=== PATIENT | female | born 2000 | race Caucasian/White ===

== ENCOUNTER 2018-01-22 21:44 | Emergency (ER) | payer OTHER ==
[~2018-01-22] VITALS: Ht 175.3 cm; Wt 60.5 kg
[2018-01-22 21:48] VITALS: Ht 175.3 cm; Wt 60.5 kg
[2018-01-22 22:58] LABS: BASO % 0.4 %; BASO ABS # 0.03 K/uL (0-0.2); EOS % 2.3 %; EOS ABS # 0.16 K/uL (0-0.5); HEMOGLOBIN 13.7 g/dL (12.0-16.0); IG# 0.02 K/uL (0.00-0.02); LYMPH % 28.6 %; LYMPH ABS # 1.97 K/uL (1.2-3.4); MEAN CELL VOLUME 91.5 fL (80-100); MEAN CORPUSCULAR HEMOGLOBIN 30.6 pg (25-34); MEAN CORPUSCULAR HGB CONC 33.4 g/dl (32-36); MEAN PLATELET VOLUME 9.7 fL (7.4-10.4); MONO % 9.3 %; MONO ABS # 0.64 K/uL (0.11-0.59); NEUT % 59.1 %; NEUT ABS # 4.08 K/uL (1.4-6.5); PLATELET COUNT 184 K/uL (130-400); RED CELL DISTRIBUTION WIDTH CV 13.4 % (11.5-14.5); RED CELL DISTRIBUTION WIDTH SD 44.3 fL (36.4-46.3)
[2018-01-22 23:14] LABS: ALBUMIN 3.6 gm/dl (3.4-5.0); CALCIUM 8.9 mg/dl (8.5-10.1); CREATININE 0.78 mg/dl (0.60-1.20); POTASSIUM 3.3 mmol/L (3.5-5.1)
[2018-01-22 23:17] LABS: TOTAL PROTEIN 6.5 gm/dl (6.4-8.2)
[2018-01-23] MEDS ORDERED: OPTIRAY 320 IV PRN (00:15)
[2018-01-23] MEDS ORDERED: DXY100 PO (00:56)
--- NOTE | 2018-01-23 00:57 | EMERGENCY ROOM VISIT NOTE ---
History Report prepared by Anna: Daniel Jacobson Under the Supervision of: Dr. Roberto Clarke M.D. First contact with patient: 21:54 Chief Complaint: INFECTION Stated Complaint: INFECTED R FOOT History of Present Illness The patient is a 18 year old female who presents to the Emergency Room with complaints of persistent right foot infection after cutting her right foot 7 days ago. She states that she was in [place] for spring last week, and while in the ocean, she cut her right foot on a rock. The patient says that she got 2 stitches at the [facility] by a doctor, that were taken out yesterday. The patient says that there was some drainage that was somewhat clear. She notes that she was put on Levofloxacin and a medication for the swelling that is equivalent to Advil. The patient says that the swelling started right after the incident, and redness started 2 days ago and has gradually been worsening. The patient states that her right foot is tingling, but is not painful. She rates the pain as a 3 out of 10 [address] she walks. She says that the flight home increased the swelling, especially up into her leg. She adds that on the car ride from [place] to [facility], she noticed some swelling starting on her left foot. She states that she went to the hospital in [place] first after she landed, and had an x-ray and blood work, and it was inconclusive what the problem was. The x-ray revealed no abnormalities and her CBC and chemistry panel looked good. The patient states that she has been trying to keep her right foot elevated at most times. She notes no chronic medical conditions and no pertinent family history. Pt denies LOC, headache, visual changes, neck pain , chest pain, breathing difficulties, nausea, vomiting, abdominal pain, back pain, weakness, open wounds, or other complaints. Source of History: patient Onset: 7 days ago Position: foot (right) Symptom Intensity: redness and swelling Quality: other (infection) Timing: other (persistent) Note: Tingling right foot. Left foot swelling starting today. No other associated symptoms noted. Review of Systems See HPI for pertinent positives and negatives. A total of ten systems were reviewed and were otherwise negative. Past Medical & Surgical Medical Problems: (1) No chronic diseases present Family History No pertinent family history Social History Smoking Status: Never Smoker Marital Status: single Housing Status: lives with roommate Occupation Status: [employer] student Current/Historical Medications Scheduled Doxycycline Hyclate (Doxycycline Hyclate), 100 MG PO BID [redaflam], 1 TAB PO DAILY Allergies Coded Allergies: Amoxicillin (Verified Allergy, Intermediate, rash, 01/22/18) Clavulanic Acid (Verified Allergy, Intermediate, rash, 01/22/18) Physical Exam Vital Signs Date Time Temp Pulse Resp B/P (MAP) Pulse Ox O2 Delivery O2 Flow Rate FiO2 01/23/18 01:19 36.7 58 20 107/66 100 01/23/18 00:28 36.7 58 20 107/66 100 Room Air 01/22/18 23:17 49 20 124/65 100 Room Air 01/22/18 21:48 36.7 119 20 130/89 97 Room Air Physical Exam GENERAL: Awake, alert, well-appearing, in no distress HENT: Normocephalic, atraumatic. Oropharynx unremarkable. EYES: Normal conjunctiva. Sclera non-icteric. NECK: Supple. No nuchal rigidity. FROM. No masses. RESPIRATORY: Clear to auscultation. No wheezes. CARDIAC: Borderline tachycardic rate. Normal rhythm. No murmurs. No rubs. Extremities warm and well perfused. Pulses equal. No JVD. GI: Soft, non-distended. No tenderness to palpation. No rebound or guarding. No masses. RECTAL: Deferred. MUSCULOSKELETAL: Chest examination reveals no tenderness. The back is symmetrical on inspection without obvious abnormality. There is no CVA tenderness to palpation. No joint edema. LOWER EXTREMITIES: 2+ pedal edema right side, 1+ pretibial edema. Incision is clean, dry, and intact on lateral foot. Erythema dorsal aspect of right foot, no significant tenderness. Right calf is slightly larger than left. NEURO: Normal sensorium. No sensory or motor deficits noted. SKIN: No rash or jaundice noted. Medical Decision & Procedures ER Provider Diagnostic Interpretation: US: Radiology results as stated below per my review and radiologist interpretation US VENOUS RIGHT LOWER EXTREMITY: No DVT. Radiologist: Sg West MD CT scan of the right lower extremity reveals soft tissue stranding in the distal ankle and foot which may represent an edema versus cellulitis. No fluid collection. No acute fracture. No sclerotic or destructive change in the bones to suggest an infectious process. CT scan report Per stat rad. Laboratory Results 3/10/18 22:35 Red Blood Count 4.48, Mean Corpuscular Volume 91.5, Mean Corpuscular Hemoglobin 30.6, Mean Corpuscular Hemoglobin Concent 33.4, Mean Platelet Volume 9.7, Neutrophils (%) (Auto) 59.1, Lymphocytes (%) (Auto) 28.6, Monocytes (%) (Auto) 9.3, Eosinophils (%) (Auto) 2.3, Basophils (%) (Auto) 0.4, Neutrophils # (Auto) 4.08, Lymphocytes # (Auto) 1.97, Monocytes # (Auto) 0.64, Eosinophils # (Auto) 0.16, Basophils # (Auto) 0.03 01/22/18 22:35 Test 01/22/18 22:35 White Blood Count 6.90 K/uL (4.8-10.8) Red Blood Count 4.48 M/uL (4.2-5.4) Hemoglobin 13.7 g/dL (12.0-16.0) Hematocrit 41.0 % (37-47) Mean Corpuscular Volume 91.5 fL (80-100) Mean Corpuscular Hemoglobin 30.6 pg (25-34) Mean Corpuscular Hemoglobin Concent 33.4 g/dl (32-36) Platelet Count 184 K/uL (130-400) Mean Platelet Volume 9.7 fL (7.4-10.4) Neutrophils (%) (Auto) 59.1 % Lymphocytes (%) (Auto) 28.6 % Monocytes (%) (Auto) 9.3 % Eosinophils (%) (Auto) 2.3 % Basophils (%) (Auto) 0.4 % Neutrophils # (Auto) 4.08 K/uL (1.4-6.5) Lymphocytes # (Auto) 1.97 K/uL (1.2-3.4) Monocytes # (Auto) 0.64 K/uL (0.11-0.59) Eosinophils # (Auto) 0.16 K/uL (0-0.5) Basophils # (Auto) 0.03 K/uL (0-0.2) RDW Standard Deviation 44.3 fL (36.4-46.3) RDW Coefficient of Variation 13.4 % (11.5-14.5) Immature Granulocyte % (Auto) 0.3 % Immature Granulocyte # (Auto) 0.02 K/uL (0.00-0.02) Erythrocyte Sedimentation Rate 7 mm/hr (0-21) Anion Gap 5.0 mmol/L (3-11) Est Creatinine Clear Calc Drug Dose 109.9 ml/min Estimated GFR () 126.8 Estimated GFR (Non- 109.4 BUN/Creatinine Ratio 12.8 (10-20) Calcium Level 8.9 mg/dl (8.5-10.1) Total Bilirubin 0.3 mg/dl (0.2-1) Direct Bilirubin 0.1 mg/dl (0-0.2) Aspartate Amino Transf (AST/SGOT) 37 U/L (15-37) Alanine Aminotransferase (ALT/SGPT) 32 U/L (12-78) Alkaline Phosphatase 52 U/L (45-117) C-Reactive Protein 0.37 mg/dl (0-0.29) Total Protein 6.5 gm/dl (6.4-8.2) Albumin 3.6 gm/dl (3.4-5.0) Procalcitonin < 0.05 ng/ml (0-0.5) Laboratory results reviewed by me Medications Administered Medications (Trade) Dose Ordered Sig/Derrick Route Start Time Stop Time Status Last Admin Dose Admin Doxycycline Hyclate (Vibramycin Cap) 200 mg ONE ONCE PO 01/23/18 01:00 01/23/18 01:01 DC 01/23/18 00:58 200 MG ED Course 2157: The patient was evaluated in room B7. A complete history and physical exam was performed. 2358: I reevaluated and updated the patient. We will do a CT scan. 1253: The patient was reassessed. Discussed results. She is feeling well. She is comfortable with conservative management and close outpatient follow-up. Medical Decision Triage Nursing notes reviewed. The patient's presentation and history were concerning for swelling and pain in the leg after a wound in the saltwater. Etiologies such as cellulitis, retained foreign body, vibrio infection, Mycobacterium infection, DVT, joint effusion, infection, trauma, muscular, lymphedema, idiopathic, CHF, as well as others were entertained. The patient was evaluated. She Was mildly tachycardic initially but this resolved. Blood work was obtained. The patient had an ultrasound ordered. Her CBC was unremarkable. Chemistry panel and LFTs negative. The patient had a minor elevation of her CRP but normal ESR. Ultrasound imaging did not reveal any evidence of DVT. CT imaging was performed to rule out any deep space infection or necrotizing fasciitis given the saltwater wound exposure. This was negative except for edema/cellulitis. The patient is finishing her levofloxacin prescription. Based upon the exposure I discussed additional coverage with doxycycline. She was given the initial doses here. Prescription was sent to her pharmacy. She will follow-up in 2 days with [facility]. The patient was also given supportive stockings for the edema. I gave my usual and customary discussion regarding this issue. By the evaluation outlined above other emergent etiologies such as those listed in the differential, as well as others, were deemed relatively unlikely. The patient was educated about the findings as listed above. All questions were answered and the patient was pleased with the treatment. Return instructions were outlined and the patient was discharged in stable condition. The patient was referred to [facility] for follow-up for a recheck of the current condition. Medication Reconcilliation Current Medication List: was personally reviewed by me Blood Pressure Screening Patient's blood pressure: Elevated blood pressure Blood pressure disposition: Elevated BP felt to be situational Impression Primary Impression: Cellulitis Additional Impression: Edema Scribe Attestation The scribe's documentation has been prepared under my direction and personally reviewed by me in its entirety. I confirm that the note above accurately reflects all work, treatment, procedures, and medical decision making performed by me. Departure Information Dispostion Home / Self-Care Prescriptions Doxycycline Hyclate (Doxycycline Hyclate) 100 Mg Cap 100 MG PO BID for 9 Days, #18 CAP Prov: Roberto Clarke MD 01/23/18 Patient Instructions My [facility] Additional Instructions Doxycycline 100mg: Take one pill twice daily for 10 days for your foot. Take with food, but avoid dairy. Avoid prolonged sun exposure since this medication makes you temporarily more susceptible to sunburns. All antibiotics can cause diarrhea. If this occurs and you feel worse or it does not resolve in 1-2 days follow up with your doctor or return to the Emergency Department as this could be signs of serious underlying problems. Any medication can cause an allergic reaction, stop the pills immediately and return to the ER for rash, hives, breathing difficulties, or swelling. Ibuprofen(Motrin, Advil) may be used for fever or pain. Use 600mg every six hours as needed. Take with food. Avoid using more than 2400mg in a 24 hour period. Do not use 2400mg per day for more than three consecutive days without physician direction. Prolonged inappropriate use can lead to stomach upset or ulcers. (AND/OR) Acetaminophen(Tylenol) may be used for fever or pain. Use 1000mg every six hours as needed. Avoid using more than 4000mg in a 24 hour period. Warm compresses to the affected area 4 times daily for 15-20 minutes. Use the support stockings daily and elevate your legs. Rest and drink plenty of fluids. Return to the ER for severe pain, persistent fevers, spreading redness, or any worsening of your condition. Follow up with Wednesday for a recheck of the current condition. Problem Qualifiers
[2018-01-23] MEDS ORDERED: DOXYCYCLINE HYCLATE 100 MG CAP PO ONE (01:00)
[2018-01-23] MEDS ORDERED: [UNRECOGNIZED DRUG - OTHER] PO (01:17)
[2018-01-23 01:19] VITALS: BP 107/66; PULSE 58; TEMP 36.7; O2SAT 100
--- NOTE | 2018-01-23 06:31 | DIAGNOSTIC IMAGING REPORT ---
ULTRASOUND R VENOUS DOPP LOWER EXT UNILAT CLINICAL HISTORY: right leg swelling COMPARISON STUDY: No previous studies for comparison. FINDINGS: Real-time and color flow Doppler imaging were performed. Flow was seen within the femoral, popliteal and calf veins with no intraluminal thrombus demonstrated. The saphenous vein is patent. IMPRESSION: No evidence of right lower extremity DVT Electronically signed by: João Lock M.D. 01/23/2018 6:29 AM Dictated Date/Time: 01/23/2018 6:29 AM
--- NOTE | 2018-01-23 06:54 | DIAGNOSTIC IMAGING REPORT ---
CT RIGHT ANKLE WITH CONTRAST CT DOSE: 335.80 mGy.cm CLINICAL HISTORY: right foot infection, eval above ankle distally, TECHNIQUE: The patient was scanned in a dynamic helical fashion during intravenous administration of 93 cc of Optiray 320. Sagittal and coronal reformatted imaging was performed. A dose lowering technique was utilized adhering to the principles of ALARA. COMPARISON STUDY: None. FINDINGS: No fractures are visualized. There are no bony destructive lesions to indicate osteomyelitis. There is lateral soft tissue edema. There are no fluid collections to indicate a focal abscess. No foreign bodies are visualized. IMPRESSION: 1. Lateral soft tissue edema 2. No evidence of abscess 3. No foreign bodies identified 4. No evidence of osteomyelitis Electronically signed by: João Lock M.D. 01/23/2018 6:53 AM Dictated Date/Time: 01/23/2018 6:50 AM
== END 2018-01-23 01:20 | disposition home or self-care (01) ==
LOC: C.EDB 21:45
DX: L03.115 Cellulitis of right lower limb (principal); S99.921A Unspecified injury of right foot, initial encounter; W45.8XXA Other foreign body or object entering through skin, initial encounter; Y92.832 Beach as the place of occurrence of the external cause; Z88.1 Allergy status to other antibiotic agents

== ENCOUNTER 2018-02-24 15:40 | Emergency (ER) | payer OTHER ==
[~2018-02-24] VITALS: Ht 174 cm; Wt 60.0 kg
[~2018-02-24 15:40] MED LIST: DXY100 PO; [UNRECOGNIZED DRUG - OTHER] PO
[2018-02-24 15:45] VITALS: Ht 174 cm; Wt 60.0 kg
--- NOTE | 2018-02-24 16:13 | EMERGENCY ROOM VISIT NOTE ---
History Report prepared by Anna: Daniel Jacobson Under the Supervision of: Dr. Jefry Garcia M.D. First contact with patient: 15:50 Chief Complaint: FEVER Stated Complaint: FEVER 103 History of Present Illness The patient is a 18 year old female who presents to the Emergency Room with complaints of a persistent illness that started 4 days ago. She states that on the day of onset, she had really bad right lower back pain. The next day, the pain went away but then she has been having a persistent fever since then. She notes that she has also been getting intermittent headaches. She says that she has been having muscle aches. The patient states that she had a temperature of 103 yesterday, and was seen at [facility], where she was told that if her temperature stayed that high, to come here. She notes that she has been taking Extra-Strength Tylenol alternating with Ibuprofen, which only helps temporarily. She denies any nausea, vomiting, diarrhea, cough, loss of consciousness, numbness, or rashes. The patient notes no chance of . She notes no recent sick contacts. She has no chronic medical conditions, and does not take any daily medications. Source of History: patient Onset: 4 days ago Position: other (global) Symptom Intensity: temp of 103 Quality: other (illness) Timing: other (persistent) Associated Symptoms: + fevers, + headache, + back pain, No LOC, No cough, No nausea, No vomiting, No diarrhea, No numbness, No rash Note: Lightheadedness and blurry vision upon standing. Body aches. Review of Systems See HPI for pertinent positives and negatives. A total of ten systems were reviewed and were otherwise negative. Past Medical & Surgical Medical Problems: (1) No chronic diseases present Family History No pertinent family history Social History Smoking Status: Never Smoker Marital Status: single Housing Status: lives with roommate Occupation Status: [employer] student Current/Historical Medications Scheduled PRN Acetaminophen (Tylenol Extra Strength), 1,000 MG PO DAILY PRN for Pain or Fever Ibuprofen (Ibuprofen), 400 MG PO DAILY PRN for Pain or Fever Allergies Coded Allergies: Amoxicillin (Verified Allergy, Intermediate, rash, 02/24/18) Clavulanic Acid (Verified Allergy, Intermediate, rash, 02/24/18) Physical Exam Vital Signs Date Time Temp Pulse Resp B/P (MAP) Pulse Ox O2 Delivery O2 Flow Rate FiO2 02/24/18 18:19 85 18 118/62 100 02/24/18 17:09 37.1 66 108/56 100 Room Air 02/24/18 15:45 37.4 96 18 117/69 96 Room Air Physical Exam Physical Exam GENERAL: She is oriented to person, place, and time. She appears well- developed and well-nourished. She does not appear distressed. ____ HENT: Exam performed. Head: Normocephalic and atraumatic. Right Ear: External ear normal. No mastoid tenderness. Left Ear: External ear normal. No mastoid tenderness. Mouth/Throat: The oropharynx is clear and moist. No trismus in the jaw. No dental abscesses or uvula swelling. No oropharyngeal exudate or tonsillar abscesses. ____ EYES: Funduscopic exam revealed no AV nicking or papilledema bilaterally. Conjunctivae and EOM are normal. Pupils are equal, round, and reactive to light. Right eye exhibits no discharge. Left eye exhibits no discharge. No scleral icterus. ____ NECK: Normal range of motion. Neck supple. No JVD present. No spinous process tenderness present. No carotid bruit present. No rigidity. No tracheal deviation and normal range of motion present. No Brudzinski's sign and no Kernig 's sign noted. ____ CV: Normal rate, regular rhythm, normal heart sounds and intact distal pulses. There is no peripheral edema. Palpable radial pulses bue. ____ PULM/CHEST: Effort normal and breath sounds normal. No respiratory distress. No stridor. She has no wheezes. She has no rales. Chest Wall: She exhibits no tenderness. ____ ABD: The abdomen is soft. Bowel sounds are normal. She has no distension. No mass is present. There is no tenderness. There is no rebound, no guarding, no Vasquez's sign and no tenderness at McBurney's point. Rovsig negative MUSC/SKEL: Normal range of motion. There is no peripheral edema, tenderness or deformity. LYMPH: No cervical adenopathy. ____ NEURO: She is alert and oriented to person, place, and time. She has normal strength. No cranial nerve deficit or sensory deficit. Coordination and gait normal. GCS eye subscore is 4. GCS verbal subscore is 5. GCS motor subscore is 6. Cerebellar tests wnl. ____ SKIN: Skin is warm and dry. She is not diaphoretic. ____ PSYCH: She has a normal mood and affect. She behavior is normal. Judgment and thought content normal. ____ Medical Decision & Procedures Laboratory Results Test 02/24/18 16:09 Influenza Type A Antigen Neg for Influ A (NEG) Influenza Type B Antigen Neg for Influ B (NEG) Laboratory results reviewed by me ED Course 1600: The patient was evaluated in room B12B. A complete history and physical exam was performed. 1710: Vital signs stable. I reevaluated the patient and she is in no acute distress, texting on her phone. On repeat exam, she had no meningeal signs. I discussed with the patient that her influenza swab was negative but I recommended that she keep taking the Tamiflu prescribed by the [facility] doctor. I explained to her that she has no physical exam findings consistent with meningitis including no nuchal rigidity/neck stiffness, negative Brudzinski and Kernig, and no photophobia. I did offer to perform a lumbar puncture on the patient, as she was concerned about meningitis, but she declines as she says that she feels fine and her headache is not severe. I encouraged her to keep her oral hydration and to take alternating Tylenol and Motrin for her temperature. The patient agreed. DISCHARGE - Plan of care discussed with patient and questions answered. The patient was given both verbal and printed discharge instructions. The patient verbalized understanding and ability to comply. The patient is to seek outpatient follow up as noted in the discharge instructions. The patient verbalized understanding and ability to comply. The patient is discharged in stable condition. The patient was instructed to return for worsening symptoms. 1753: At the time of discharge, the patient told the nurse that she was concerned that she has toxic shock syndrome, as she uses tampons, and is not sure if she has all of her tampons out. Pelvic exam can ducted with nursing at bedside and assisting, no external lesions. No vaginal discharge. IUD in place. No cervical discharge, no cervical motion tenderness. No foreign bodies. Patient will be discharged in stable condition. Medical Decision 1710: Vital signs stable. I reevaluated the patient and she is in no acute distress, texting on her phone. On repeat exam, she had no meningeal signs. I discussed with the patient that her influenza swab was negative but I recommended that she keep taking the Tamiflu prescribed by the [facility] doctor. I explained to her that she has no physical exam findings consistent with meningitis including no nuchal rigidity/neck stiffness, negative Brudzinski and Kernig, and no photophobia. I did offer to perform a lumbar puncture on the patient, as she was concerned about meningitis, but she declines as she says that she feels fine and her headache is not severe. I encouraged her to keep her oral hydration and to take alternating Tylenol and Motrin for her temperature. The patient agreed. DISCHARGE - Plan of care discussed with patient and questions answered. The patient was given both verbal and printed discharge instructions. The patient verbalized understanding and ability to comply. The patient is to seek outpatient follow up as noted in the discharge instructions. The patient verbalized understanding and ability to comply. The patient is discharged in stable condition. The patient was instructed to return for worsening symptoms. 1753: At the time of discharge, the patient told the nurse that she was concerned that she has toxic shock syndrome, as she uses tampons, and is not sure if she has all of her tampons out. Pelvic exam can ducted with nursing at bedside and assisting, no external lesions. No vaginal discharge. IUD in place. No cervical discharge, no cervical motion tenderness. No foreign bodies. Patient will be discharged in stable condition. Medication Reconcilliation Current Medication List: was personally reviewed by me Blood Pressure Screening Patient's blood pressure: Normal blood pressure Impression Primary Impression: Viral syndrome Scribe Attestation The scribe's documentation has been prepared under my direction and personally reviewed by me in its entirety. I confirm that the note above accurately reflects all work, treatment, procedures, and medical decision making performed by me. The chart was completed utilizing [employer] Speech voice recognition software. Grammatical errors, random word insertions, pronoun errors, and incomplete sentences are an occasional consequence of this system due to software limitations, ambient noise, and hardware issues. Any formal questions or concerns about the content, text, or information contained within the body of this dictation should be directly addressed to the physician for clarification. Departure Information Dispostion Home / Self-Care Referrals No Doctor, Assigned (PCP) Patient Instructions ED Viral Syndrome, [facility] Additional Instructions Continue keeping oral hydration with water and Gatorade. Take Tylenol/Motrin for fever greater than 100.4 and body aches. Return to the emergency department if you develop Williamson greater 100.4 kn controlled with Tylenol/Motrin, vomiting, pain with urination, blood in urine, extreme headache not resolved with Tylenol/Motrin, cough, cough up any blood, neck pain, throat pain.
[2018-02-24] MEDS ORDERED: IBUP1CAP9 PO (16:44)
[2018-02-24] MEDS ORDERED: ACET-1138 PO (16:44)
[2018-02-24 16:57] LABS: INFLUENZA B ANTIGEN Neg for Influ B (NEG)
[2018-02-24 17:09] VITALS: TEMP 37.1
[2018-02-24 18:19] VITALS: BP 118/62; PULSE 85; O2SAT 100
== END 2018-02-24 18:20 | disposition home or self-care (01) ==
LOC: C.EDB 15:42
DX: B34.9 Viral infection, unspecified (principal); Z97.5 Presence of (intrauterine) contraceptive device; Z88.1 Allergy status to other antibiotic agents